=== PATIENT | female | born 2000 | race Caucasian/White ===

== ENCOUNTER 2020-06-07 16:02 | Emergency (ER) | payer OTHER ==
[~2020-06-07 16:02] MED LIST: CATAPRES 0.1MG0.1 MG PO; COLACE 100MG C100 MG PO; PRENATAL VITAM1 EAC8 PO; ZANTAC150 MG PO
[2020-06-07 18:35] LABS: HEMOGLOBIN 13.1 gm/dl (12.3-15.3); RED BLOOD COUNT 4.34 M/UL (4.00-5.10); WHITE BLOOD COUNT 11.8 K/UL (4.5-11.0)
[2020-06-07 18:50] LABS: BUN/CREATININE RATIO 10 (0-10)
[2020-06-07] MEDS ORDERED: OMNICEF 300 MG300 MG PO (21:23)
== END 2020-06-07 21:59 | disposition home or self-care (01) ==
LOC: ER1 16:02
PROVIDERS: Physician Assistant
DX: O23.42 Unspecified infection of urinary tract in pregnancy, second trimester (principal); O99.891 Other specified diseases and conditions complicating pregnancy; R51.9 Headache, unspecified; Z3A.19 19 weeks gestation of pregnancy; Z98.890 Other specified postprocedural states; Z88.1 Allergy status to other antibiotic agents; Z88.2 Allergy status to sulfonamides; Z20.822 Contact with and (suspected) exposure to COVID-19
CPT/HCPCS: 80053; 81001; 85025; 87077; 87081; 87086; 87186; 87880; 96372; 99284; J0696; U0002

== ENCOUNTER 2020-09-21 10:51 | Observation (INO) | payer OTHER ==
[~2020-09-21] VITALS: Ht 157.5 cm; Wt 75.7 kg
[~2020-09-21 10:51] MED LIST changes: +OMNICEF 300 MG300 MG PO
[2020-09-21 11:59] LABS: HEMOGLOBIN 12.3 gm/dl (12.3-15.3); RED BLOOD COUNT 4.05 M/UL (4.00-5.10); WHITE BLOOD COUNT 24.2 K/UL (4.5-11.0)
[2020-09-21 12:20] LABS: BUN/CREATININE RATIO 10 (0-10)
[2020-09-22 05:51] LABS: HEMOGLOBIN 10.9 gm/dl (12.3-15.3)
[2020-09-22 05:52] LABS: RED BLOOD COUNT 3.58 M/UL (4.00-5.10); WHITE BLOOD COUNT 15.1 K/UL (4.5-11.0)
[2020-09-22] MEDS ORDERED: KEFLEX CAP 250250 MG PO (07:27)
[2020-09-22] MEDS ORDERED: PRENATAL VITAM1 EAC3 PO (07:27)
== END 2020-09-22 16:36 | disposition home or self-care (01) ==
LOC: GENOP 10:51 → OB 13:18
PROVIDERS: ADMIT Obstetrics & Gynecology
DX: O98.813 Other maternal infectious and parasitic diseases complicating pregnancy, third trimester (principal); O23.03 Infections of kidney in pregnancy, third trimester; O36.8330 Maternal care for abnormalities of the fetal heart rate or rhythm, third trimester, not applicable or unspecified; A41.9 Sepsis, unspecified organism; F31.9 Bipolar disorder, unspecified; F41.9 Anxiety disorder, unspecified; Z20.822 Contact with and (suspected) exposure to COVID-19; Z3A.34 34 weeks gestation of pregnancy
CPT/HCPCS: 36415; 59025; 80053; 81001; 85025; 87086; 96360; 96361; 96367; 96374; 96375; 96376; C9113; G0378; J0595; J0696; J2550; J7030; J7120; U0002

== ENCOUNTER 2020-10-02 04:41 | Outpatient (CLI) | payer OTHER ==
[~2020-10-02 04:41] MED LIST changes: +KEFLEX CAP 250250 MG PO; +PRENATAL VITAM1 EAC3 PO
[2020-10-02 07:07] LABS: HEMOGLOBIN 11.9 gm/dl (12.3-15.3); RED BLOOD COUNT 3.94 M/UL (4.00-5.10); WHITE BLOOD COUNT 16.1 K/UL (4.5-11.0)
[2020-10-02 07:14] LABS: BUN/CREATININE RATIO 21 (0-10)
== END 2020-10-02 17:02 | disposition home or self-care (01) ==
LOC: GENOP 04:41
PROVIDERS: Obstetrics & Gynecology
DX: O99.891 Other specified diseases and conditions complicating pregnancy (principal); R30.0 Dysuria; Z3A.35 35 weeks gestation of pregnancy
CPT/HCPCS: 59025; 76705; 80053; 81001; 85025; 87077; 87086; 87186; 96360; 96361; 96374; 96376; J0595; J0696; J7030

== ENCOUNTER 2020-10-03 12:55 | Outpatient (CLI) | payer OTHER | END 2020-10-03 17:14 | disposition home or self-care (01) | LOC: GENOP 12:55 | DX: Z03.71 Encounter for suspected problem with amniotic cavity and membrane ruled out (principal); O99.891 Other specified diseases and conditions complicating pregnancy; R10.9 Unspecified abdominal pain; O99.343 Other mental disorders complicating pregnancy, third trimester; F31.9 Bipolar disorder, unspecified; F41.9 Anxiety disorder, unspecified; Z87.891 Personal history of nicotine dependence; Z88.1 Allergy status to other antibiotic agents; Z79.899 Other long term (current) drug therapy; Z3A.36 36 weeks gestation of pregnancy | CPT/HCPCS: 81001; 96360; 96361; 96365; 96372; J0702; J7120 ==

== ENCOUNTER 2020-10-09 16:14 | Outpatient (CLI) | payer OTHER ==
[2020-10-09 17:25] LABS: RED BLOOD COUNT 4.2 M/UL (4.00-5.10); WHITE BLOOD COUNT 15.8 K/UL (4.5-11.0)
== END 2020-10-09 17:12 | disposition home or self-care (01) ==
LOC: GENOP 16:14
PROVIDERS: Obstetrics & Gynecology
DX: Z01.812 Encounter for preprocedural laboratory examination (principal); Z88.2 Allergy status to sulfonamides; Z88.1 Allergy status to other antibiotic agents
CPT/HCPCS: 36415; 81001; 85025

== ENCOUNTER 2020-10-11 05:41 | Inpatient (IN) | payer OTHER ==
[2020-10-11] MEDS ORDERED: HYDROCODON-ACE1 EAC4 PO (08:20)
[2020-10-11] MEDS ORDERED: COLACE100 MG PO (08:20)
[2020-10-11] MEDS ORDERED: IBU600 MG PO (08:20)
[2020-10-12 05:35] LABS: HEMOGLOBIN 9.2 gm/dl (12.3-15.3)
[2020-10-13] MEDS ORDERED: FERROUS SULFAT325 M2 PO (12:03)
[2020-10-13] MEDS ORDERED: AUGMENTIN 875-1 EACH PO (12:03)
== END 2020-10-13 17:36 | disposition home or self-care (01) | DRG 787 ==
LOC: OB 05:41
PROVIDERS: ADMIT Obstetrics & Gynecology
PROC: 3E0234Z Introduction of Serum, Toxoid and Vaccine into Muscle, Percutaneous Approach (ICD-10-PCS; 2020-10-11)
PROC: 10D00Z1 Extraction of Products of Conception, Low, Open Approach (ICD-10-PCS; principal; 2020-10-11 08:33)
DX: O34.211 Maternal care for low transverse scar from previous cesarean delivery (principal); O72.1 Other immediate postpartum hemorrhage; E72.12 Methylenetetrahydrofolate reductase deficiency; O86.20 Urinary tract infection following delivery, unspecified; N85.8 Other specified noninflammatory disorders of uterus; Z3A.37 37 weeks gestation of pregnancy; Z37.0 Single live birth; O99.62 Diseases of the digestive system complicating childbirth; K80.20 Calculus of gallbladder without cholecystitis without obstruction; O99.344 Other mental disorders complicating childbirth; F41.9 Anxiety disorder, unspecified; F31.9 Bipolar disorder, unspecified; Z88.1 Allergy status to other antibiotic agents; Z82.49 Family history of ischemic heart disease and other diseases of the circulatory system; Z83.3 Family history of diabetes mellitus; Z84.89 Family history of other specified conditions; O99.283 Endocrine, nutritional and metabolic diseases complicating pregnancy, third trimester; Z23 Encounter for immunization
CPT/HCPCS: 36415; 82800; 85014; 85018; 90715; C9113; J0690; J1885; J2210; J2250; J2270; J2274; J2405; J2590; J3010; J7120

== ENCOUNTER → 2021-01-02 | Outpatient (CLI) | payer OTHER ==
[~2021-01-02] MED LIST changes: +AUGMENTIN 875-1 EACH PO; +COLACE100 MG PO; +FERROUS SULFAT325 M2 PO; +HYDROCODON-ACE1 EAC4 PO; +IBU600 MG PO
[2021-01-02 11:27] LABS: HEMOGLOBIN 14.3 gm/dl (12.3-15.3); RED BLOOD COUNT 5.1 M/UL (4.00-5.10); WHITE BLOOD COUNT 8.2 K/UL (4.5-11.0)
[2021-01-02 12:19] LABS: BUN/CREATININE RATIO 19 (0-10)
[2021-01-03 09:13] LABS: THYROXINE (T4) 7.6 ug/dL (4.5-12.0)
== END ==
LOC: US 10:20
PROVIDERS: Nurse Practitioner Family
DX: R10.811 Right upper quadrant abdominal tenderness (principal); R10.11 Right upper quadrant pain; R10.30 Lower abdominal pain, unspecified; R53.82 Chronic fatigue, unspecified; Z13.1 Encounter for screening for diabetes mellitus; Z13.220 Encounter for screening for lipoid disorders; K80.20 Calculus of gallbladder without cholecystitis without obstruction; R93.422 Abnormal radiologic findings on diagnostic imaging of left kidney; R93.421 Abnormal radiologic findings on diagnostic imaging of right kidney; Z97.5 Presence of (intrauterine) contraceptive device
CPT/HCPCS: 36415; 76700; 76856; 80053; 80061; 81001; 83036; 84436; 84443; 84480; 85025; 85652; 86140

== ENCOUNTER → 2021-02-05 | Outpatient (CLI) | payer OTHER ==
[2021-02-05 18:37] LABS: BUN/CREATININE RATIO 20 (0-10)
[2021-02-07 10:13] LABS: CREATININE, URINE 75.9 mg/dL (Not Estab.)
== END ==
LOC: LAB 17:26
PROVIDERS: Internal Medicine Nephrology
DX: R93.429 Abnormal radiologic findings on diagnostic imaging of unspecified kidney (principal)
CPT/HCPCS: 36415; 80053; 81001; 82043; 82570; 84156

== ENCOUNTER → 2021-03-18 | Outpatient (CLI) | payer OTHER | LOC: KOH-I 11:20 | DX: N20.0 Calculus of kidney (principal) | CPT/HCPCS: 74176 ==

== ENCOUNTER → 2021-11-06 | Outpatient (CLI) | payer OTHER | LOC: US 11-03 11:00 | DX: N63.10 Unspecified lump in the right breast, unspecified quadrant (principal) | CPT/HCPCS: 76642-RT ==

== ENCOUNTER → 2022-02-09 | Outpatient (CLI) | payer OTHER | LOC: US 14:53 | DX: N64.4 Mastodynia (principal); N63.10 Unspecified lump in the right breast, unspecified quadrant | CPT/HCPCS: 76641-RT ==